=== PATIENT | female | born 1980 | race Caucasian/White ===

== ENCOUNTER → 2023-09-23 | Outpatient (CLI) | payer BC, SELFPAY ==
[2023-09-23 17:39] LABS: Hematocrit 41.2 % (37-47); Hemoglobin 13.8 g/dL (12.0-15.0); Mean Corp Hgb Conc 33.5 g/dL (32-36); Mean Corpuscular Hgb 30.9 pg (27.0-32.0); Mean Corpuscular Volume 92.4 fL (81-99); Mean Platelet Vol. 10.7 fl (6.2-12.0); Platelet Count 216 K/mm3 (150-450); RBC Distribution Width CV 12.2 % (11.6-14.6); RBC Distribution Width SD 41.5 fl (35.1-43.9); Red Blood Count 4.46 M/mm3 (4.2-5.4); White Blood Count 6.6 K/mm3 (4.4-11.0)
[2023-09-23 18:11] LABS: ALB/GLOB Ratio 1.3 RATIO (0.9-2.4); AST(SGOT) 14 U/L (15-37); Alanine Aminotransfer ALT/SGPT 19 U/L (13-56); Albumin, Serum 3.8 g/dL (3.2-5.0); Alkaline Phosphatase 43 U/L (45-117); Anion Gap 2 (5-15); BUN 17 mg/dL (7-18); BUN/Creat Ratio 24.4 RATIO (10-20); Calcium,Total 8.6 mg/dL (8.5-10.1); Chloride 108 mmol/L (98-107); EST Glomerular Filtration Rate 98 mL/min (>60); Est Glom Filt Rate - Afr Amer 119 mL/min (>60); Glucose 114 mg/dL (74-106); Potassium 3.8 mmol/L (3.5-5.1); Protein, Total 6.8 g/dL (6.4-8.2); Sodium Level 138 mmol/L (136-145); T4 Free Direct 0.74 ng/dL (0.76-1.46); Thyroid Stim Hormone (TSH) 2.28 uIU/mL (0.358-3.74)
== END | disposition home or self-care (01) ==
LOC: MFPLAB 16:32
PROVIDERS: PCP Nurse Practitioner Family; Visit Provider Nurse Practitioner Family
DX: F32.A Depression, unspecified (principal)
CPT/HCPCS: 36415; 80053; 84439; 84443; 85027

== ENCOUNTER → 2024-07-25 | Outpatient (CLI) | payer BC, SELFPAY ==
--- NOTE | 2024-07-25 15:00 | RAD_ITS ---
STUDY: X-RAY - RIGHT ELBOW REASON FOR EXAM: Female, 43 years old. PAIN TECHNIQUE: 3 view(s) of the elbow. COMPARISON: None. FINDINGS: Normal visualized humerus, radius and ulna. Normal radiocapitellar and ulnotrochlear articulations. The soft tissue structures are unremarkable. RAD/Elbow min 3 Views IMPRESSION: Normal x-ray examination of the elbow. Electronically Signed: Nick Dasilva MD at 12:23 EST ,
--- NOTE | 2024-07-25 15:00 | RAD_ITS ---
STUDY: X-RAY - RIGHT RADIUS AND ULNA REASON FOR EXAM: Female, 43 years old. PAIN TECHNIQUE: 2 view(s) of the forearm. COMPARISON: None. FINDINGS: There is no demonstrated soft tissue swelling. Healed fracture of the proximal shaft of the radius with a plate and screws. Normal visualized ulna. RAD/Forearm 2 Views IMPRESSION: No acute fracture or dislocation. Healed fracture of the radius with a plate and screws. Electronically Signed: Nick Dasilva MD at 12:25 EST ,
== END | disposition home or self-care (01) ==
LOC: MTRAD 14:59
PROVIDERS: PCP Family Medicine; Referring Provider Family Medicine; Visit Provider Family Medicine
DX: M79.601 Pain in right arm (principal)
CPT/HCPCS: 73080; 73090

== ENCOUNTER 2024-08-15 14:57 | Outpatient (RCR) | payer BC, SELFPAY ==
--- NOTE | 2024-08-18 11:05 | HP.PTEVAL_ITS ---
Patient's Visit Information Visit Information Visit Information: ASCENCION JAIN is a 43 year old F referred to Physical Therapy by Liss Dowell MD with a diagnosis of R lateral epicondylitis. Date of Evaluation: 08/15/24 Physical Therapist: Stephen Liu DPT Visit Plan Frequency: 1x/Week Duration: 6 Weeks Plan: 1) wrist extensor eccentrics 2) B shoulder and periscapular strengthening I gave her some exercises to work on today (including wrist eccentrics, rows, triceps strengthening and DFM) . Pt. desires to trial on her own currently and follow back up in a few weeks as needed. Subjective Subjective: Pt is here today for her initial evaluation with diagnosis of arm pain. Pt. reports having increased R elbow pain for a few months now. Pt. reports no mech of injury, but now that she has been having issues she reports compensating and having increased L shoulder pain. She denies N/T in either UE. Pt. reports no mech pain. Pt. works in local [employer] and has to lift a lot. Pt. is hopeful to reduce symptoms in order to get back to all work and recreational activities without limitations. Pain R elbow: Pain Intensity (Out of 10): 1 Pain Intensity Range: 0 and 4 L shoulder: Pain Intensity (Out of 10): 0 Pain Intensity Range: 0 and 4 Objective Objective: POSTURE: Pt. has normal elbow and shoulder positioning. PALPATION: pt. has some tenderness at lateral epicondyle on R side. Pt. did not have any pain with palaption of L RTC or shoulder. NEURO: pt. has normal sensation in BUEs. Normal DTR of BUEs. ROM: PT. has full ROM throughout BUEs without increase in symptoms. Slight hypermobility in B shoulders and elbows. MMT: Pt. has decent strength throughout BUEs, she did have some soreness with R wrist extension. No major issues with L shoulder MMT. Patient has increased tenderness to palpation of R wrist extensors. No major issues with stretching her extensors. Balance/Special Test Scores Quick DASH Score: 20.4525 Goals Goal 1:: LTG: Pt. to be I with HEP. Goal Time Frame: 4-6 Weeks Goal 2:: LTG: Pt. to complete all work related activities without increase in R wrist or L shoulder pain. Goal Time Frame: 4-6 Weeks Goal 3:: LTG: Pt. have no pain with gripping and lifitng. Goal Time Frame: 4-6 Weeks Rehabilitation Potential Physical Therapy Diagnosis: Pt. has signs and symptoms consistent with R lateral epicondylitis. Pt. has some tenderness with active use of of R wrist extensors and with griping. She would benefit from PT to address this progressing back to all recreational activities without limitations. Rehabilitation Potential: Excellent Anticipated Interventions Patient/Client Instruction: Educate patient on: Condition, Plan of Care, Risk Factors and Benefits of Fitness Program Text: Thank you for the opportunity to evaluate your patient. For Medicare and Medicare HMO plans, please review the plan of care and approve it. It will need to be FAXED BACK to us at [phone] for Medicare purposes. For Medicare only, by signing this I certify the plan of care. Please let me know if there are questions or concerns regarding this plan of care. Physician Signature: Date:
== END 2024-08-15 19:00 | disposition home or self-care (01) ==
LOC: PT 14:57
PROVIDERS: PCP Family Medicine; Referring Provider Family Medicine; Visit Provider Family Medicine
DX: M79.603 Pain in arm, unspecified (principal)
CPT/HCPCS: 97110; 97161